=== PATIENT | male | born 1965 | race Caucasian/White ===

== ENCOUNTER → 2019-07-31 | Outpatient (CLI) | payer OTHER ==
--- NOTE | 2019-08-01 09:30 | RAD ---
STUDY: MRI of the right shoulder without contrast INDICATION: Worsening chronic shoulder pain. COMPARISON: None available. TECHNIQUE: Multiplanar MR imaging of the right shoulder performed without the use of intravenous or intra-articular contrast. FINDINGS: AC joint: Sequela of subacromial decompression. No fluid distention of the subacromial subdeltoid bursa. Rotator cuff: No high-grade or full-thickness rotator cuff tear. No advanced tendinosis. The supraspinatus tendon is somewhat heterogeneous possibly related to prior debridement. Normal rotator cuff musculature signal and bulk. Labrum: The superior to mid posterior labrum is heterogeneous and diminutive in size in the setting of prior biceps tenodesis. Long head biceps tendon: Osseous defect at the humeral head most compatible with prior biceps tenodesis. Mild cystic expansion of the surgical tunnel. The biceps tendon is not well seen exiting this defect. Cartilage: Potential chondral thinning involving the medial humeral head and portions of the glenoid. Bones: Mild medial humeral head and glenoid osteophyte formation. Mild edema-like signal deep to the humeral head cortex in the region of the infraspinatus insertion, image 16 series 4. No acute fracture. Miscellaneous: Moderate joint effusion with synovitis and small loose bodies. Impression: 1. Status post subacromial decompression as well as findings most compatible with prior biceps tenodesis. Potential supraspinatus debridement given heterogeneity of the tendon however this could also be secondary to tendinosis. No high-grade or full-thickness rotator cuff tear. The long head biceps tendon is not well seen exiting the tenodesis defect and may be either very thin or recurrently torn. Mild cystic expansion of the tenodesis surgical defect also noted. 2. Moderate joint effusion with synovitis and small loose bodies. 3. Glenoid and medial humeral head osteophyte formation and suspected chondral thinning in these regions. 4. Areas of labral degeneration/chronic tearing. Electronically signed by: ALMA MALIK MD (08/01/2019 9:27 AM) [email or web address]
== END | disposition home or self-care (01) ==
LOC: MRI 10:18
PROVIDERS: ATTEND Family Medicine
DX: M25.411 Effusion, right shoulder (principal); M65.811 Other synovitis and tenosynovitis, right shoulder; M25.711 Osteophyte, right shoulder
CPT/HCPCS: 73221

== ENCOUNTER → 2020-06-23 | Outpatient (CLI) | payer OTHER ==
[~2020-06-23] MED LIST: IBUP200T58 PO; OXYC-325 PO; PROM25TA10 PO
== END ==
LOC: LAB 14:36
PROVIDERS: ATTEND Orthopaedic Surgery
DX: Z01.812 Encounter for preprocedural laboratory examination (principal); Z20.828 Contact with and (suspected) exposure to other viral communicable diseases
CPT/HCPCS: U0003

== ENCOUNTER 2020-06-26 08:49 | Day surgery (SDC) | payer OTHER ==
[~2020-06-26] VITALS: Ht 182.9 cm; Wt 112.9 kg
[~2020-06-26 08:49] MED LIST changes: +BUPIVACAINE-EPI 0.25%-1:200000 MPF 30 ML VIAL. INJ ONE; +CLINDAMYCIN 900MG PREMIX 50 ML IV PRN; +HYDROmorphone 2 MG/ML VIAL IV PRN; -IBUP200T58 PO; +IV RINGERS,LACTATED 1000ML 1,000 ML IV SCH; +MORPHINE SULFATE 2 MG/ML VIAL. IV PRN; +ONDANSETRON PF 4 MG/2 ML VIAL. IV PRN; -OXYC-325 PO; +PROCHLORPERAZINE 10 MG/2 ML VIAL. IV PRN; -PROM25TA10 PO; +fentaNYL PF VIAL 100 MCG/2 ML VIAL IV PRN
[2020-06-26] MEDS ORDERED: IBUP200T58 PO (09:23)
[2020-06-26] MEDS ORDERED: EPINEPHrine VIAL 30 MG/30 ML VIAL ONE (11:00)
[2020-06-26] MEDS ORDERED: fentaNYL PF VIAL 250 MCG/5 ML VIAL ONE (11:05)
[2020-06-26] MEDS ORDERED: ROCURONIUM 50 MG/5 ML VIAL. ONE (11:05)
[2020-06-26] MEDS ORDERED: PROPOFOL 10 MG/ML (20ML) VIAL. IV ONE (11:06)
[2020-06-26] MEDS ORDERED: LIDOCAINE 2% PF 5 ML VIAL. ONE (11:06)
[2020-06-26] MEDS ORDERED: ONDANSETRON PF 4 MG/2 ML VIAL. ONE (11:06)
[2020-06-26] MEDS ORDERED: DEXAMETHASONE SOD PHOS 4 MG/ML VIAL ONE (11:06)
[2020-06-26] MEDS ORDERED: BUPIVACAINE-EPI 0.25%-1:200000 MPF 30 ML VIAL. INJ ONE (12:30)
[2020-06-26] MEDS ORDERED: GLYCOPYRROLATE 1 MG/5 ML VIAL. ONE (12:36)
[2020-06-26] MEDS ORDERED: NEOSTIGMINE METHYLSULFATE 5 MG/5 ML SYRINGE. ONE (12:36)
--- NOTE | 2020-06-26 12:49 | PDOC4 ---
Operative Note Operative Note Date of Procedure: June 26, 2020 Pre-Op Diagnosis: Impingement syndrome of right shoulder - M75.41 Primary osteoarthritis, right shoulder acromioclavicular joint - M19.011 Post-Op Diagnosis: Impingement syndrome of right shoulder - M75.41 Primary osteoarthritis, right shoulder acromioclavicular joint - M19.011 Procedure: Arthroscopy, shoulder, surgical; decompression of subacromial space with partial acromioplasty CPT 38361 Arthroscopy, shoulder, surgical; distal claviculectomy 10 mm, including distal articular surface (Tu procedure) CPT 31315 Surgeon: Arnoldo Keith MD Floor Nurse: VIVIAN Lemon Anesthesia: General EBL: 25 mL Specimens Obtained: none Complications: none Drains: none Findings: Right shoulder extensive osteoarthritis of the glenohumeral joint, with exposed and partially eburnated bone throughout the humerus. Some exposed and eburnated bone on the glenoid. There may have been a remnant of the biceps, which I debrided with a shaver and was extensively degenerative. The undersurface of the cuff shows no detachment from the footprint. The cuff tissue is not normal but there is no high-grade tearing, and it is stable to probing, including with a marker suture examining from both the bursal and the articular aspects. There was prominence of the acromion, and of the distal clav icle which are likely recurrent from prior surgery, with regrowth of osteophytes. He has an intact cuff for future surgery. I expect he will require a glenohumeral primary total shoulder arthroplasty in the future, based on my findings of the severe osteoarthritis of the glenohumeral joint. Indications for Procedure: This 54-year-old man has right shoulder pain unrelieved with nonoperative treatment. He had prior arthroscopic biceps tenodesis, distal clavicle excision and subacromial decompression, but several years ago. Exam is consistent with recurrent acromioclavicular joint osteoarthritis symptoms, and recurrent impingement syndrome and possible rotator cuff tear. I spoke to him about arthroscopy, subacromial decompression, distal clavicle excision, and possible rotator cuff repair. Procedure in Detail: The patient was identified in the preoperative holding area. The correct right shoulder was marked by me. The patient was taken to the operating room where general anesthesia was used. The patient was positioned in the beachchair position with the bony prominences well-padded and the eyes protected. Preoperative antibiotics were given intravenously. A timeout procedure was performed. Under sterile technique 20 mL of bupivacaine with epinephrine was injected into the subacromial space and glenohumeral joint. The limb was then thoroughly prepared with surgical ChloraPrep solution circumferentially. Sterile waterproof arthroscopy shoulder drapes were applied, along with an impervious stockinette over the arm, and a Spider arm mccoy. Posterior, posterolateral, lateral, and anterior arthroscopy portals were used. The glenohumeral joint showed extensive cartilage loss, throughout almost the entire humeral head. There is cartilage loss of the glenoid. This is severe osteoarthritis of the glenohumeral joint, much more than I would expect for his age. There appears to be a portion of the biceps tendon still attached to the superior labrum, despite the history of bicep tenodesis previously. The fibers of this are extensively degenerative. I did a biceps tenotomy and debrided the remaining degenerative biceps tendon fibers. The undersurface of the rotator cuff is intact with some minor fraying, and I did some minor shaving and debridement of some unstable fibers. The cartilage loss is mostly at the articular aspect. Closer to the footprint the cartilage is normal, and the foot print shows intact attachment of the rotator cuff. I did place a marker suture so that I could examine the same area from the bursal aspect, but the cuff does not appear detached and there is no PASTA lesion. The subacromial space was entered. The acromion has mostly been decompressed but there is some regrowth of small enthesophytes, which are causing impingement. I did a revision subacromial decompression, removing prominent bone and smoothing the acromion back into a Bigliani type I configuration. A three-stage acromioplasty was performed, with the wilman first laterally, removing anterior acromion, using the distal clavicle as a reference. The wilman was then placed in the posterior portal, and a cutting block technique was used for smoothing of the lateral edge of the acromion tapering the anterior acromion into a Bigliani type I configuration. Final smoothing of the acromion was performed with the wilman again in the lateral portal, and direct arthroscopic visualization. I removed perhaps 6 mm of bone in the most aggressive area. The impingement of the subacromial space was now nicely decompressed. The distal clavicle appears to have chronic and recurrent osteophyte formation and prominent osteoarthritis, and is causing impingement on the cuff. I res ected 10 mm of distal clavicle bone, with the motorized wilman, correcting the impingement and opening the acromioclavicular space to 10 mm. The [employer] Edge thermal energy bipolar device was used for hemostasis. The rotator cuff was again examined at the marker suture. There is some minor bursal thickening probably from prior surgery, but there is no area of cuff tissue thinning or weakness or any palpable defect. It does not appear that a cuff tear is indicated. I could detect no bursal sided cuff tear. Copious saline irrigation was used. My branch assistant Sean closed the portals with #3-0 ProleneHe injected an additional 30 mL of bupivacaine with epinephrine. Xeroform was used over the portals. A bulky sterile dressing was applied. A sling was applied. There were no apparent complications. ARNOLDO KEITH MD Jun 26, 2020 12:49
[2020-06-26] MEDS ORDERED: SEVOFLURANE 61 TO 120 MINUTES. IH ONE (13:04)
[2020-06-26] MEDS ORDERED: fentaNYL PF VIAL 100 MCG/2 ML VIAL ONE (13:13)
[2020-06-26] MEDS: fentaNYL PF VIAL 100 MCG/2 ML VIAL IV PRN ×2 (13:16→13:38)
[2020-06-26] MEDS ORDERED: OXYC-325 PO (13:17)
[2020-06-26] MEDS ORDERED: PROM25TA10 PO (13:18)
[2020-06-26] MEDS ORDERED: oxyCODONE/APAP 5/325 1 TAB TABLET PO PRN ×2 (13:30→13:45)
[2020-06-26 13:52] VITALS: BP 133/89
== END 2020-06-26 14:35 | disposition home or self-care (01) ==
LOC: SURG 08:49
PROVIDERS: ATTEND Orthopaedic Surgery
DX: M75.41 Impingement syndrome of right shoulder (principal); M19.011 Primary osteoarthritis, right shoulder; M25.711 Osteophyte, right shoulder; Z79.899 Other long term (current) drug therapy; Z98.890 Other specified postprocedural states; Z88.0 Allergy status to penicillin
CPT/HCPCS: 29824; 29826; A4565; A7015; J0171; J1100; J2405; J2704; J2710; J3010; J3490; J7120